=== PATIENT | male | born 1950 | race Caucasian/White ===

== ENCOUNTER → 2022-04-23 | Outpatient (CLI) | payer OTHER ==
[~2022-04-23] MED LIST: ALBUTEROL SULF 2.5 MG/0.5ML(0.5%) NEB SOLN ONE; SODIUM CHLORIDE 0.9 % NEB SOLN 3ML NEB ONE
== END | disposition home or self-care (01) ==
LOC: RT 10:25
PROVIDERS: ATTEND Internal Medicine Pulmonary Disease
DX: R06.02 Shortness of breath (principal); R06.00 Dyspnea, unspecified
CPT/HCPCS: 94060